=== PATIENT | female | born 1955 | race Caucasian/White ===

== ENCOUNTER → 2020-03-20 | Outpatient (CLI) | payer MEDICARE, OTHER ==
[2020-03-20 08:16] LABS: HEMATOCRIT 44.9 % (37.0-47.0); MEAN CELL VOLUME 90.9 fl (81.0-99.0); MEAN CORPUSCULAR HGB 29.6 pg (27.0-31.0); MEAN CORPUSCULAR HGB CONC 32.5 g/dl (33.0-37.0); MEAN PLATELET VOLUME 10.8 fl (9.6-12.3); RED BLOOD COUNT 4.94 10*6/uL (4.10-5.10); RED CELL DISTRI WIDTH 12.7 % (0-14.5); WHITE BLOOD COUNT 4.2 10*3/uL (4.8-10.8)
[2020-03-20 08:52] LABS: ALBUMIN 3.7 gm/dl (3.1-4.5); ALKALINE PHOSPHATASE 58 U/L (45-117); BUN 10 mg/dl (7-24); CHLORIDE 102 mmol/L (98-107); CHOLESTEROL 199 mg/dL (<200); FREE T4 1.01 ng/dl (0.76-1.46); HDL CHOLESTEROL 62 mg/dl (40-60); LDL CHOLESTEROL 112 mg/dL (9-159); SGOT/AST 24 IU/L (3-35); SGPT/ALT 35 U/L (12-78); SODIUM 135 mmol/L (136-145); TOTAL PROTEIN 7.3 gm/dL (6.4-8.2); TRIGLYCERIDES 124 mg/dl (<150); VLDL CHOLESTEROL 25 mg/dL (6-40)
[2020-03-20 09:39] LABS: VITAMIN D, 25-HYDROXY 32.7 ng/mL (30-100)
[2020-03-21 07:06] LABS: H PYLORI IGG AB 0.16 (0.00-0.79)
[2020-03-21 17:10] LABS: ANTICARDIOLIPIN AB, IGG, QN <9 GPL U/mL (0-14); ANTICARDIOLIPIN AB, IGM, QN <9 MPL U/mL (0-12); CARDIOLIPIN AB IGA <9 APL U/mL (0-11)
[2020-03-22 15:10] LABS: PROTEIN C, ACTIVITY 162 % (73-180); PROTEIN S - FUNCTIONAL 78 % (63-140); PROTEIN S, FREE 71 % (57-157); PROTEIN S, TOTAL 92 % (60-150)
[2020-03-24 10:09] LABS: PHOSPHOLIPIDS 233 mg/dL (150-250)
== END | disposition home or self-care (01) ==
LOC: LAB 07:26
PROVIDERS: ATTEND Family Medicine
DX: K21.9 Gastro-esophageal reflux disease without esophagitis (principal); E78.00 Pure hypercholesterolemia, unspecified; I10 Essential (primary) hypertension; I82.409 Acute embolism and thrombosis of unspecified deep veins of unspecified lower extremity; D58.9 Hereditary hemolytic anemia, unspecified; E55.9 Vitamin D deficiency, unspecified

== ENCOUNTER → 2020-04-08 | Outpatient (CLI) | payer MEDICARE, OTHER | END | disposition home or self-care (01) | LOC: COVID19 10:30 | PROVIDERS: ATTEND Nurse Practitioner Family | DX: U07.1 COVID-19 (principal) ==

== ENCOUNTER → 2023-07-05 | Outpatient (CLI) | payer BC | END | disposition home or self-care (01) | LOC: MAMMO 04:26 | PROVIDERS: ATTEND Internal Medicine | DX: Z12.31 Encounter for screening mammogram for malignant neoplasm of breast (principal) ==

== ENCOUNTER 2024-11-26 07:05 | Emergency (ER) | payer BC ==
[~2024-11-26] VITALS: Ht 172.7 cm; Wt 81.6 kg
[2024-11-26] MEDS ORDERED: Lopressor25 MG PO (07:14)
[2024-11-26] MEDS ORDERED: 'CLONIDINE0.1 MG PO (07:15)
[2024-11-26] MEDS ORDERED: ZESTORETIC 20-1 EACH PO (07:15)
[2024-11-26] MEDS ORDERED: OMEPRAZOLE MAGN20 MG PO (07:16)
[2024-11-26 07:45] LABS: BASO # 0.0 10*3/uL (0.0-0.1); BASO % 0.3 % (0.0-1.0); EOS # 0.2 10*3/uL (0.0-0.4); EOS % 1.8 % (1.0-4.0); MEAN CELL VOLUME 91.7 fl (81.0-99.0); MEAN CORPUSCULAR HGB 30.2 pg (27.0-31.0); MEAN PLATELET VOLUME 9.9 fl (9.6-12.3); MONO # 0.7 10*3/uL (0.1-1.0); MONO % 7.9 % (3.0-9.0); NEUT # 6.1 10*3/uL (2.3-7.9); NEUT % 70.5 % (47.0-73.0); NUCLEATED RED BLOOD CELL 0.0 % (0.0-0.0); NUCLEATED RED BLOOD CELL 0.0 10*3/uL (0.0-0.0); PLATELET COUNT AUTOMATED 260 10*3/uL (130-400); RED CELL DISTRI WIDTH 12.6 % (0-14.5)
[2024-11-26 07:58] LABS: ACT PARTIAL THROMBO TIME 22.8 SECONDS (20.0-32.1)
[2024-11-26 08:06] LABS: BUN 13 mg/dl (9-23)
== END 2024-11-26 08:55 | disposition home or self-care (01) ==
LOC: ED 07:05
PROVIDERS: Internal Medicine
DX: I10 Essential (primary) hypertension (principal); K21.9 Gastro-esophageal reflux disease without esophagitis; R51.9 Headache, unspecified